=== PATIENT | female | born 1985 | race Caucasian/White ===

== ENCOUNTER → 2024-12-12 | Outpatient (CLI) | payer BC ==
[~2024-12-12] MED LIST: IOHEXOL-350 75 ML VIAL IV ONE
--- NOTE | 2024-12-13 10:58 | HMCIMG ---
CT ABDOMEN/PELVIS W/ intravenous CONTRAST oral contrast. REASON: Lower abdominal pain, unspecified COMPARISON: None. FINDINGS: Lung bases are clear. There are no focal liver lesions. There are normal-appearing kidneys.. Spleen and pancreas appear unremarkable. The gallbladder appears normal as well. Bowel loops appear unremarkable. This includes normal appearance of the appendix large bowels are well-opacified with oral contrast. There is no evidence of free fluid or intraperitoneal air. There are no focal fluid collections. Aorta and retroperitoneum appear normal as do pelvic soft tissue structures. The anterior abdominal wall is intact. Osseous structures appear unremarkable. There is mild disc disease with loss of disc height at L5-S1. The uterus is mildly deviated towards the left side. There is a 2.3 cm right adnexal cyst. There is suggestion of possible nabothian cysts in the cervix. IMPRESSION: 1. No acute process seen a CT of the abdomen and pelvis with intravenous contrast 2. Right adnexal cyst 3.. Disc disease with loss of disc height at L5-S1. CT was performed with one or more following dose reduction techniques: automated exposure control, adjustment of the mA and kv according to patient's size, or use of a iterative reconstruction technique.
== END | disposition home or self-care (01) ==
LOC: RAH 10:06
PROVIDERS: ATTEND Internal Medicine Gastroenterology
DX: N83.291 Other ovarian cyst, right side (principal); N85.4 Malposition of uterus; R10.30 Lower abdominal pain, unspecified
CPT/HCPCS: 74177; Q9967